=== PATIENT | female | born 1965 | race Two or more races ===

== ENCOUNTER 2022-06-06 19:08 | Emergency (ER) | payer OTHER ==
[~2022-06-06] VITALS: Ht 162.6 cm; Wt 77.1 kg
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
--- NOTE | 2022-06-06 20:22 | NUR ---
XRAY AT BEDSIDE
[2022-06-06] MEDS ORDERED: HYDROCODONE/APAP 5/325MG TABLET ONE (20:23)
[2022-06-06] MEDS ORDERED: KETOROLAC TROMETHAMINE INJ 30 MG/ML VIAL ONE (20:24)
[2022-06-06] MEDS: KETOROLAC TROMETHAMINE INJ 60 MG/2 ML VIAL IM ONE (20:30)
[2022-06-06] MEDS: HYDROCODONE/APAP 5/325MG TABLET PO ONE (20:30)
[2022-06-06] MEDS ORDERED: NAPR-1009 PO (21:44)
--- NOTE | 2022-06-06 21:47 | NUR ---
Patient discharged to home in stable condition. Written and verbal after care instructions given. Patient verbalizes understanding of instruction. PT ambulatory with a steady gait. PT TAKEN HOME BY MOTHER IN LAW
[2022-06-06 21:51] VITALS: BP 130/80
== END 2022-06-06 21:47 | disposition admitted as inpatient to this hospital (09) ==
LOC: ER 19:17
DX: S16.1XXA Strain of muscle, fascia and tendon at neck level, initial encounter (principal); S00.83XA Contusion of other part of head, initial encounter; S20.219A Contusion of unspecified front wall of thorax, initial encounter; R51.9 Headache, unspecified; Z88.8 Allergy status to other drugs, medicaments and biological substances; Z79.1 Long term (current) use of non-steroidal anti-inflammatories (NSAID); V49.9XXA Car occupant (driver) (passenger) injured in unspecified traffic accident, initial encounter; Y93.89 Activity, other specified; Y92.89 Other specified places as the place of occurrence of the external cause; Y99.8 Other external cause status
CPT/HCPCS: 99283; 71045; 96372; J1885